=== PATIENT | male | born 1990 | race Two or more races ===

== ENCOUNTER 2017-03-24 17:41 | Emergency (ER) | payer OTHER ==
[2017-03-24 17:51] VITALS: BP 138/69; PULSE 75; RESP 16; TEMP 97.7; O2SAT 95
--- NOTE | 2017-03-24 18:25 | EDPHY ---
H & P Time Seen by Provider: 03/24/17 18:23 HPI/ROS: CHIEF COMPLAINT: Chemical burn HISTORY OF PRESENT ILLNESS: Patient complains of a chemical skin burn to the right forearm. This happened this evening. He was working with phalloidin stain in the microbiology lab at [facility]. He works as a analytical laboratory technician. This chemical accidentally splashed onto the bare scan of the right posterior forearm. This is a very small area. Non circumferential. There is pain at the site of contact. No pain distally. No difficulty moving the extremity. There is no contact with the head, face, eyes or oral mucosa. No contact anywhere else on his person. He irrigated the area with water copiously. He did not apply any topical medications. No other associated complaints or modifying factors TETANUS STATUS: Up-to-date MEDICAL/SURGICAL/SOCIAL HISTORY: Denies any medical diagnoses. [employer] student. Originally from [place] REVIEW OF SYSTEMS: Ten systems reviewed and are negative unless otherwise noted in the HPI EXAMINATION General Appearance: Alert, no distress Head: normocephalic, atraumatic ENT: Pupils equal round reactive. No icterus or injection. No periorbital erythema. Cardiovascular: Pulses normal throughout. Brisk cap refill Neurological: A&O, sensory symmetric, strength symmetric Skin: Grossly intact for warm and dry. There is a 1.5 cm, linear area of erythema to the right posterior lateral forearm. Non circumferential. No bleeding. Local irritation noted. No blisters Extremities: Nontender, no pedal edema DIFFERENTIAL DIAGNOSES: Including but not limited to chemical burn, chemical exposure MDM: 6:23 p.m. Superficial chemical burn to the posterior-lateral aspect of the right wrist. This is 1.5 cm in length and thus non circumferential. Poison Control has been contacted by the RN (Dominguez) and a case number is documented. He is in no acute distress with normal vital signs. He is neuro intact distally. Supportive care is the only recommendation from poison Control. He will be provided a nonocclusive dressing. We discussed the importance of protective equipment in the lab. We discussed worker's compensation follow-up in ED precautions. Discharged home stable condition. SUPERVISION: This patient was independently evaluated without direct involvement of or examination by the attending physician. ED Precautions: Worsening pain. Erythema, edema, cyanosis, pallor, paresthesia or anesthesia. Smoking Status: Never smoked Constitutional: Initial Vital Signs Temperature (C) 97.7 F 03/24/17 17:49 Heart Rate 75 03/24/17 17:49 Respiratory Rate 16 03/24/17 17:49 Blood Pressure 138/69 H 03/24/17 17:49 O2 Sat (%) 95 03/24/17 17:49 O2 Delivery Mode Room Air Allergies/Adverse Reactions: No Known Allergies Allergy (Unverified 05/12/14 13:51) Home Medications: Medication Instructions Recorded Bactrim DS 05/12/14 MDM/Departure - Depart Disposition: Home, Routine, Self-Care Clinical Impression: Chemical burn Condition: Good Instructions: Chemical Skin Burn (ED) Additional Instructions: 1. Nonocclusive dressing as needed as discussed 2. Follow up with worker's compensation Clinic 3. ED precautions as discussed Stand Alone Forms: Work Comp Follow Up Referrals: [facility] [Clinic] - As per Instructions
== END 2017-03-24 18:32 | disposition home or self-care (01) ==
DX: T65.6X1A Toxic effect of paints and dyes, not elsewhere classified, accidental (unintentional), initial encounter (principal); T22.511A Corrosion of first degree of right forearm, initial encounter; X58.XXXA Exposure to other specified factors, initial encounter; Y92.214 College as the place of occurrence of the external cause

== ENCOUNTER 2017-04-22 00:39 | Emergency (ER) | payer OTHER ==
[2017-04-22 00:48] VITALS: O2SAT 96
--- NOTE | 2017-04-22 01:35 | EDPHY ---
H & P Stated Complaint: c/o anal discomfort, recent constip causing pain, improved, this am worse Time Seen by Provider: 04/22/17 01:18 HPI/ROS: Chief Complaint: Rectal pain HPI: A 26-year-old male presenting with 2 days of worsening rectal pain. Patient states he has noted swelling in that area is concerned he might have some hemorrhoids. Patient states that he frequently strange when he has a bowel movement. No nausea or vomiting. He also has been taking some Imodium to decrease his stools at the recommendation of his girlfriend. No nausea or vomiting. He has not been taking any medication for the pain. ROS: 10 point Review of Systems is negative except as noted in the HPI. PMH: Denies Social History: No smoking, no alcohol, no recreational drug use Family History: non-contributory Physical Exam: Gen: Awake, Alert, No Distress HEENT: Nose: no rhinorrhea Eyes: PERRLA, EOMI Mouth: Moist mucosa Neck: Supple, no JVD Chest: nontender, lungs clear to auscultation Heart: S1, S2 normal, no murmur Abd: Soft, non-tender, no guarding Back: no CVA tenderness, no midline tenderness Rectal: Patient has a large 1 cm x 2 cm thrombosed hemorrhoid on the left. Genital: Normal uncircumcised penis, no scrotal tenderness swelling or erythema. Ext: no edema, non-tender Skin: no rash Neuro: CN II-XII intact, Sensation grossly intact, Strength 5/5 in bilateral upper and lower extremities - Medical/Surgical History Hx Asthma: No Hx Chronic Respiratory Disease: No Hx Diabetes: No Hx Cardiac Disease: No Hx Renal Disease: No Hx Cirrhosis: No Hx Alcoholism: No Hx HIV/AIDS: No Hx Splenectomy or Spleen Trauma: No Other PMH: denies - Social History Smoking Status: Never smoked Constitutional: Initial Vital Signs Temperature (C) 36.8 C 04/22/17 00:42 Heart Rate 82 04/22/17 00:42 Respiratory Rate 16 04/22/17 00:42 Blood Pressure 114/75 04/22/17 00:42 O2 Sat (%) 96 04/22/17 00:42 O2 Delivery Mode Room Air Allergies/Adverse Reactions: No Known Allergies Allergy (Verified 04/22/17 00:48) Home Medications: Medication Instructions Recorded NK [No Known Home Meds] 04/22/17 Medical Decision Making Procedures: Procedure note: Excision of thrombosed external hemorrhoid. Indication: Thrombosed external hemorrhoid. Patient was placed in a prone position. Tape was used to retract the buttocks. Patient was prepped with Hibiclens. The area was anesthetized with 1% lidocaine with epinephrine infiltration. The thrombosed hemorrhoid was excised in a radial direction with an 11 blade. An elliptical excision was performed. A moderate amount of blood clot was removed. Area was cleaned thoroughly. Patient was given a gauze pad. He tolerated the procedure without any difficulty. There were no complications. Performed by myself. Departure - Departure Disposition: Home, Routine, Self-Care Clinical Impression: Hemorrhoid Condition: Good Instructions: Hemorrhoids (ED), High Fiber Diet (ED), Thrombosed Hemorrhoid (ED ) Additional Instructions: Make sure to increase the fiber in your diet. You may start taking MiraLax every day according to package instructions. May take ibuprofen alternating with acetaminophen as needed for pain. Soak in a warm tub 2 to 3 times a day. Drink at least 8 glasses of water a day. It is important that you not strain when you have a bowel movement. Follow up with General surgery in about a week for further evaluation. Referrals: Giovany Dumont MD [Medical Doctor] - As per Instructions
[2017-04-22 02:02] VITALS: BP 133/64; PULSE 73; RESP 18; TEMP 98.1
== END 2017-04-22 02:04 | disposition home or self-care (01) ==
PROC: 06BY0ZC Excision of Hemorrhoidal Plexus, Open Approach (ICD-10-PCS; principal; 2017-04-22)
DX: K64.5 Perianal venous thrombosis (principal)

== ENCOUNTER 2018-02-13 01:12 | Emergency (ER) | payer MEDICAID ==
[2018-02-13 01:15] VITALS: BP 122/61
[2018-02-13] MEDS ORDERED: SILVER NITRATE APPLICATOR 1 APPL TP ONE ×2 (01:25→01:29)
[2018-02-13] MEDS ORDERED: OXYMETAZOLINE 30 ML NASAL SPRAY ONE (01:25)
[2018-02-13] MEDS ORDERED: LIDOCAINE IV ONE (01:26)
[2018-02-13] MEDS ORDERED: DEXTROSE IV ONE (01:26)
[2018-02-13] MEDS ORDERED: LIDOCAINE HCL 4% TOPICAL SOLN 50ML ONE (01:29)
[2018-02-13] MEDS ORDERED: OXYMETAZOLINE 30 ML NASAL SPRAY EACHNARE ONE (01:29)
[2018-02-13] MEDS ORDERED: LIDOCAINE HCL 4% TOPICAL SOLN 50ML TP ONE (01:30)
--- NOTE | 2018-02-13 01:37 | EDPHY ---
H & P Stated Complaint: Bloody nose x2 hours, wont stop Time Seen by Provider: 02/13/18 01:17 HPI/ROS: Chief Complaint: Nosebleed HPI: 27-year-old male's been having a nosebleed for the last 2 hr. Patient states that is mixed with blood and mucus. Has been a slow ooze. Has been using some nasal spray recently. Does have a history of some bloody nose in the past. Denies any other foreign bodies in his nose. No other drug use. No lightheadedness or fainting. No history of blood clotting disorders in the family. No recent trauma. ROS: 10 systems were reviewed and were negative except those elements noted in the HPI. PMH: Denies Social History: No smoking, no alcohol, no recreational drug use Family History: non-contributory Physical Exam: Gen: Awake, Alert, No Distress HEENT: Nose: no rhinorrhea, no blood. No dried blood. No clot, No active bleeding. Eyes: PERRLA, EOMI Mouth: Moist mucosa Neck: Supple, no JVD Chest: nontender, lungs clear to auscultation Heart: S1, S2 normal, no murmur Abd: Soft, non-tender, no guarding Back: no CVA tenderness, no midline tenderness Ext: no edema, non-tender Skin: no rash Neuro: CN II-XII intact, Sensation grossly intact, Strength 5/5 in bilateral upper and lower extremities - Personal History Current Tetanus Diphtheria and Acellular Pertussis (TDAP): No - Medical/Surgical History Hx Asthma: No Hx Chronic Respiratory Disease: No Hx Diabetes: No Hx Cardiac Disease: No Hx Renal Disease: No Hx Cirrhosis: No Hx Alcoholism: No Hx HIV/AIDS: No Hx Splenectomy or Spleen Trauma: No Other PMH: denies - Social History Smoking Status: Never smoked Constitutional: Initial Vital Signs Temperature (C) 36.8 C 02/13/18 01:13 Heart Rate 80 02/13/18 01:13 Respiratory Rate 18 02/13/18 01:13 Blood Pressure 122/61 H 02/13/18 01:13 O2 Sat (%) 95 02/13/18 01:13 O2 Delivery Mode Room Air Allergies/Adverse Reactions: No Known Allergies Allergy (Verified 02/13/18 01:13) Home Medications: Medication Instructions Recorded NK [No Known Home Meds] 04/22/17 Medical Decision Making ED Course/Re-evaluation: 27-year-old male presenting with epistaxis. No active bleeding here. I have instilled Hira-Synephrine and applied a client. He has had no further bleeding. Will discharge with follow-up as an outpatient. - Data Points Medications Given: Discontinued Medications Lidocaine HCl (Lidocaine Hcl 4% Topical Solution) 0 ml TP EDNOW ONE Stop: 02/13/18 01:31 Last Admin: 02/13/18 01:32 Dose: 1 btl Oxymetazoline HCl (Afrin Nasal [place]) 2 sprays EACHNARE EDNOW ONE Stop: 02/13/18 01:30 Last Admin: 02/13/18 01:32 Dose: 2 sprays Silver Nitrate/Potassium Nitrate (Silver Nitrate Applicator) 1 each TP EDNOW ONE Stop: 02/13/18 01:30 Last Admin: 02/13/18 01:33 Dose: 1 each Departure - Departure Disposition: Home, Routine, Self-Care Clinical Impression: Acute anterior epistaxis Condition: Good Instructions: Nosebleed (ED) Additional Instructions: If the bleeding returns apply the nasal clamp ear nose Aleve in place for 20-30 minutes. If this does not control the bleeding return to the emergency department. Follow up with primary care physician in 3-4 days for further evaluation. Referrals: Mae Carroll DO [Doctor of Osteopathy] - As per Instructions
== END 2018-02-13 02:25 | disposition home or self-care (01) ==
DX: R04.0 Epistaxis (principal)
CPT/HCPCS: J2001

== ENCOUNTER 2018-02-17 08:18 | Emergency (ER) | payer MEDICAID ==
--- NOTE | 2018-02-17 08:59 | EDPHY ---
HPI/HX/ROS/PE/MDM Narrative: CLINICAL IMPRESSION: Bilateral anterior epistaxis ASSESSMENT/PLAN: Patient is a 27-year-old male with no significant medical history who presents to the emergency department complaining of bilateral epistaxis, right greater than left. Patient is afebrile and nontoxic-appearing, he is in no acute distress on arrival. physical examination revealed very small area of friability on the bilateral anterior septum. There was no obvious hematoma, perforation, foreign body, mass or evidence of a posterior epistaxis. Afrin was administered bilaterally and the small areas were cauterized with silver nitrate as discussed in the procedure note. The patient was observed for a period of time with no recurrent bleeding or evidence of posterior epistaxis. History and physical examination is consistent with bilateral anterior epistaxis. On repeat examination the patient is well appearing, there is no active bleeding and no blood noted in the posterior pharynx. Patient does not have a primary care provider, I provided a list of referrals for him to establish care with. Strict return precautions were discussed- patient will return for recurrent bleeding, dizziness, headache, chest pain, shortness of breath or for any other concerning symptom. The patient and family members all verbalized understanding and they were in agreement with this plan. Case and plan of care discussed with Dr. Garza. DIFFERENTIAL DX: Anterior epistaxis, posterior epistaxis, septal perforation, septal hematoma, acute blood loss anemia ED PROCEDURES: Procedure: Epistaxis control. After verbal consent was obtained, the patient was anesthetized with Afrin. The anterior epistaxis was identified, bilateral anterior septum. The patient was treated with silver nitrate. Following the procedure the patient was re- examined and the bleeding was well controlled. The patient tolerated the procedure well. The procedure was performed by myself. ED COURSE: CHIEF COMPLAINT: Nose bleed HPI: Patient is a 27-year-old male who presents to the emergency department complaining of bilateral epistaxis. Patient reports that he woke up this morning and noticed some blood on his pillow, realized that he was bleeding from his bilateral nares. The left side stopped. However the right-side continued to bleed. Patient applied pressure and proceeded to the emergency department as he could not get it completely stopped. Patient does report increased difficulty with nosebleeds over the last 2-3 weeks, he denies any trauma, fever, chills, headache, dizziness, chest pain or shortness of breath. He is not on aspirin or anticoagulation. PAST MEDICAL HISTORY: Denies Pertinent Past Surgical History: Denies Family History: Not contributory Social History: Denies smoking, denies alcohol and denies illicit drug use. ROS: A full 10 point review of systems was negative except for those mentioned in HPI. PHYSICAL EXAM: General Appearance: Alert, oriented, appropriate, cooperative, NAD, well hydrated, non-toxic appearing, VSS, no hypoxia. HENT: Normocephalic, atraumatic TMs are clear bilaterally no perforation or FB, no injection, no evidence of serous or mucopurulent otitis. Left nares is clear, mucosa is pink. There is a very small area of friability and mild ooze on the anterior septum. Right nares with a very small friable area on the anterior septum, not actively bleeding. There is no evidence of septal perforation or septal hematoma. Oropharynx clear is no erythema or exudates, no tonsillar hypertrophy or asymmetry. There is no blood in the posterior pharynx. Dentition without abnormality. Eyes: PERRLA, no acute vision change, nystagmus, swelling, discharge, pain or photosensitivity. Conjunctiva pink, no pallor or injection Neck: Supple, nontender, no lymphadenopathy, no midline pain, FROM, no meningismus. Respiratory: There are no retractions, lungs are clear to auscultation. Cardiac: Regular rate and rhythm, no murmurs or gallops. Gastrointestinal: Abdomen is soft, nontender, bowel sounds normal, no masses/ hernia, no rigidity, guarding or focal peritoneal findings. Skin: Warm, dry, no rashes, no nodules on palpation. MEDICAL DECISION MAKING: Patient was seen independently. Secondary supervising physician at time of evaluation was Dr. Garza. Diagnosis: Right anterior epistaxis. New, requires workup Summary: See Assessment and Plan for summary of ED visit Clinical lab tests: Not applicable. Independent visualization of images, tracing, or specimens: Not applicable. Decision to obtain medical records or history from someone other than the patient: No Review / Summarize previous medical records: Yes Discussed patient with another provider: Yes, Dr. Garza Patient Progress: Stable, discharged home. (Emmie Rahman) ED Course: The patient was evaluated and managed by the physician assistant program manager. I have reviewed this chart and I agree with the findings and plan of care as documented , as indicated by my signature. I am the secondary supervising physician. ( Brianna Garza) - Data Points Medications Given: Discontinued Medications Oxymetazoline HCl (Afrin Nasal [place]) 2 sprays EACHNARE EDNOW ONE Stop: 02/17/18 09:02 Last Admin: 02/17/18 09:09 Dose: 2 sprays Silver Nitrate/Potassium Nitrate (Silver Nitrate Applicator) 1 each TP EDNOW ONE Stop: 02/17/18 09:03 Last Admin: 02/17/18 09:10 Dose: 1 each General Initial Vital Signs: Initial Vital Signs Temperature (C) 36.5 C 02/17/18 08:22 Heart Rate 54 L 02/17/18 08:22 Respiratory Rate 16 02/17/18 08:22 Blood Pressure 115/63 02/17/18 08:22 O2 Sat (%) 99 02/17/18 08:22 O2 Delivery Mode Room Air Allergies/Adverse Reactions: No Known Allergies Allergy (Verified 02/17/18 08:21) Home Medications: Medication Instructions Recorded Accucaine Kit 02/17/18 Departure - Departure Disposition: Home, Routine, Self-Care Clinical Impression: Epistaxis Condition: Good Instructions: Nosebleed (ED) Additional Instructions: DISCHARGE INSTRUCTIONS FROM YOUR DOCTOR Thank you for visiting our emergency department today. Please keep in mind that discharge from the emergency department does not mean that there is nothing wrong - it simply means that we have not identified an emergency condition that requires further evaluation or treatment in the hospital. You should always plan to follow up with primary care for re-evaluation of your condition in the next 2-3 days. Avoid strenuous activity like heavy lifting, pushing, pulling, carrying, bearing down for the next 24 hours. Avoid nose blowing for 12-24 hours. Once the area is healed, consider using a saline nasal spray daily (ie: [place] or [place]). Do not use Afrin daily. You may use Afrin as directed with the nasal clamp for a recurrent nose bleed. Consider running a cool mist humidifier in your home. As discussed if the nose re-bleeds, apply pressure for timed 20 minutes and sit upright. Drink a glass of cold water. Return for recurrent bleeding, development of fever, severe headache, dizziness or lightheadedness, fainting, chest pain, shortness of breath, severe headache, discolored drainage from the nose, other signs of bleeding like blood in the urine, unusual bruising, blood in the stool, vomiting blood, facial pain, difficulty breathing or swallowing, numbness, tingling, weakness, or for any other new, worrisome or worsening symptoms. People present with illnesses and injuries in different ways, and it is always possible that we have missed something. You may always return for re-evaluation if symptoms worsen or if they are not improving or if you develop new/different symptoms. Again, thank you for choosing our emergency department. We hope that you feel better. Referrals: Andree Roman MD [Medical Doctor] - As per Instructions
[2018-02-17] MEDS ORDERED: OXYMETAZOLINE 30 ML NASAL SPRAY EACHNARE ONE (09:01)
[2018-02-17] MEDS ORDERED: SILVER NITRATE APPLICATOR 1 APPL TP ONE (09:02)
[2018-02-17 09:55] VITALS: BP 116/66
== END 2018-02-17 09:55 | disposition home or self-care (01) ==
PROC: 3E09XGC Introduction of Other Therapeutic Substance into Nose, External Approach (ICD-10-PCS; principal; 2018-02-17)
DX: R04.0 Epistaxis (principal)

== ENCOUNTER 2018-02-27 08:49 | Emergency (ER) | payer MEDICAID ==
[2018-02-27] MEDS ORDERED: OXYMETAZOLINE 30 ML NASAL SPRAY EACHNARE ONE (09:10)
[2018-02-27] MEDS ORDERED: LIDOCAINE 4% 15 GM CREAM TP ONE (09:11)
--- NOTE | 2018-02-27 09:22 | EDPHY ---
General Time Seen by Provider: 02/27/18 08:55 Narrative: CLINICAL IMPRESSION: Right-sided anterior epistaxis ASSESSMENT/PLAN: 27-year-old male presents to the emergency department for the 3rd time with intermittent epistaxis. Patient was sent from urgent care today after he awoke with a right-sided epistaxis today. On exam, patient has prominent vessels at bilateral anterior Kesselbach plexus with excoriation and mild oozing from a vessel on the right anterior inferior nasal septum. This was treated with oxymetazoline, 4% lidocaine cream, and silver nitrate. I then applied Surgicel to cauterized area. Patient road tested through the ED without further bleeding. I have strongly emphasized the importance of outpatient supportive care and detailed discharge instructions were given. ENT referral provided. Recent lab work at the end of January showed no evidence of anemia, abnormal coag panels, or suggestion for underlying bleeding disorder although he did not have formal hematologic workup. I have recommended follow-up with a specialist and PCP if bleeding reoccurs. Warning signs return to ED sooner outlined and discharge papers. DIFFERENTIAL DX: Differential diagnosis includes but not limited to anterior nasal septal bleeding cheek, posterior nasal arterial bleed, intranasal mass, nasal polyposis , mucous membrane dryness, coagulopathy ED PROCEDURES: See lab and/or imaging results below Epistaxis Procedure Verbal consent given by the patient after risks and alternatives were discussed including bleeding, infection, nasal injury, pain, delayed or alternative treatment. Anesthesia obtained with topical 4% lidocaine and oxymetazoline. Treatment site right anterior inferior nasal septum. Treatment method silver nitrate. Treatment was limited, episode was initial. Postprocedure, bleeding was stopped, patient tolerated well with no immediate complications. Road tested through the emergency department without further epistaxis. ED COURSE: CHIEF COMPLAINT: Bloody nose HPI: 27-year-old male presents to the emergency department from urgent care for evaluation of right-sided epistaxis. Patient reports he awoke this morning and started noticing bleeding from the right side of his nose. He then began noticing over flow to the left side of the nose. He reports bilateral epistaxis use intermittently for the last 3-4 weeks. He has had at least 3 ER visits for this. He has had cautery. He reports bleeding stops for about 3 days in between cautery. He denies any recent nasal surgery or trauma. No history of chronic nose bleeds in the past. No known family history of coagulopathy or bleeding disorders. He does not use intranasal drugs. No history of night sweats, unexplained weight loss, or other B symptoms. No rash , easy bruising or fatigue or weakness. No history of anemia. He has not followed up with primary care or Ear Nose and Throat PAST MEDICAL HISTORY: None reported See triage summary and nurse notes for addition applicable history Pertinent Past Surgical History: None reported Family History: No family history of coagulopathy Social History: Works in a [employer] in [employer] REVIEW OF SYSTEMS: A full 10 point review of systems was negative except for those mentioned in HPI. PHYSICAL EXAM: General Appearance: Alert, oriented, appropriate, cooperative, NAD, well hydrated, non-toxic appearing, VSS, not actively bleeding no hypoxia. HEENT: TMs are clear bilaterally no perforation or FB, no injection, no evidence of serous or mucopurulent otitis. Oropharynx clear is no erythema or exudates, no tonsillar hypertrophy or asymmetry. Nasal clip removed, no active bleeding identified. Prominent vessels at Kiesselbach plexus bilaterally. No blood noted in the posterior pharynx. Dentition without abnormality. Respiratory: There are no retractions, lungs are clear to auscultation. Cardiac: Regular rate and rhythm, no murmurs or gallops. Skin: Warm, dry, no rashes, no petechiae or purpura, no nodules on palpation. MEDICAL DECISION MAKING: Patient was seen independently. Secondary supervising physician at time of evaluation was: Dr. Schafer . Diagnosis: Epistaxis. New, requires workup Summary: See Assessment and Plan for summary of ED visit Clinical lab tests: Reviewed lab work from late January, no abnormalities identified. Independent visualization of images, tracing, or specimens: None obtained. Decision to obtain medical records or history from someone other than the patient: No Review / Summarize previous medical records: Reviewed past ED chart notes Discussed patient with another provider: No Patient Progress: Improved. - History Smoking Status: Never smoked - Objective Vital Signs: Initial Vital Signs Temperature (C) 36.7 C 02/27/18 08:52 Heart Rate 60 02/27/18 08:52 Respiratory Rate 16 02/27/18 08:52 Blood Pressure 113/61 02/27/18 08:52 O2 Sat (%) 98 02/27/18 08:52 O2 Delivery Mode Room Air Allergies/Adverse Reactions: No Known Allergies Allergy (Verified 02/27/18 08:51) Home Medications: Medication Instructions Recorded Accucaine Kit 02/17/18 Medications Given: Discontinued Medications Lidocaine (Anecream 4% Cream) 1 surendra TP ONCE ONE Stop: 02/27/18 09:12 Last Admin: 02/27/18 09:24 Dose: 1 dose Oxymetazoline HCl (Afrin Nasal [place]) 2 sprays EACHNARE EDNOW ONE Stop: 02/27/18 09:11 Last Admin: 02/27/18 09:13 Dose: 2 sprays Silver Nitrate/Potassium Nitrate (Silver Nitrate Applicator) 2 each TP EDNOW ONE Stop: 02/27/18 09:29 Last Admin: 02/27/18 09:33 Dose: 2 each Departure - Departure Disposition: Home, Routine, Self-Care Clinical Impression: Epistaxis Condition: Good Instructions: Nosebleed (ED) Additional Instructions: DISCHARGE INSTRUCTIONS FROM YOUR DOCTOR Thank you for visiting our emergency department today. Please keep in mind that discharge from the emergency department does not mean that there is nothing wrong - it simply means that we have not identified an emergency condition that requires further evaluation or treatment in the hospital. You should always plan to follow up with primary care for re-evaluation of your condition in the next 2-3 days. If you have been referred to a specialist, please call as soon as possible (today or tomorrow) to schedule your follow up appointment at the appropriate time. AVOID RUBBING, PICKING OR BLOWING YOUR NOSE FOR 3 DAYS. IN 24 HOURS, OR AFTER PACKING IS REMOVED, PLEASE GENTLY APPLY VASELINE, AYR, OR CANEASE GEL TO THE FRONT OF YOUR NOSE THREE TIMES PER DAY FOR MOISTURIZATION. DO NOT USE VASELINE IF YOU WEAR OXYGEN. PLEASE CONSIDER USING A HUMIDIFYER IN YOUR HOME. IF YOU BEGIN BLEEDING AGAIN AND DO NOT HAVE PACKING IN PLACE, YOU CAN TRY SOAKING A COTTON BALL WITH AFRIN NOSE SPRAY, OTC, PLACE THIS GENTLY IN THE FRONT OF YOUR NOSE, PINCH THE FRONT OF YOUR NOSE AND LEAN YOUR HEAD FORWARD. HOLD PRESSURE FOR [address] COTTON BALL SO FAR IN YOUR NOSE TO NOT BE ABLE TO TAKE IT BACK OUT. IF BLEEDING CONTINUES, RETURN TO ER. People present with illnesses and injuries in different ways, and it is always possible that we have missed something. You may always return for re-evaluation if symptoms worsen or if they are not improving or if you develop new/different symptoms. Again, thank you for choosing our emergency department. We hope that you feel better. Referrals: NONE *PRIMARY CARE P,. [Primary Care Provider] - As per Instructions Tone Brandon MD [Medical Doctor] - 1-2 days without fail
[2018-02-27] MEDS ORDERED: SILVER NITRATE APPLICATOR 1 APPL TP ONE (09:28)
[2018-02-27 10:04] VITALS: BP 122/65
== END 2018-02-27 10:20 | disposition home or self-care (01) ==
PROC: 3E09XTZ Introduction of Destructive Agent into Nose, External Approach (ICD-10-PCS; principal; 2018-02-27)
DX: R04.0 Epistaxis (principal)